=== PATIENT | male | born 1955 | race American Indian/Alaskan Native ===

== ENCOUNTER 2019-04-09 00:24 | Emergency (ER) | payer MEDICARE, OTHER ==
[~2019-04-09] VITALS: Ht 177.8 cm; Wt 117.9 kg
[~2019-04-09 00:24] MED LIST: ALBU90OI61 INH; AMOCLA875 PO; BISA5EC PO; BP MED; CEPH250A PO; CIPR500 PO; CLIN300 PO; DILT120 PO; DIURETIC; ENAL20 PO; ESOM20 PO; HTN MED X2; HYDACE5 PO; Hydrochloroth12.5 MG PO; METPRE4DP PO; MONT10T PO; OMEP40CA12 PO; OXYACE5T PO; OXYC5 PO; PANT40 PO; Prednisone50 MG PO; TIOT18 INH; Zantac150 MG PO; Zithromax250 MG PO
[2019-04-09] MEDS ORDERED: NYST100000 PO (01:40)
== END 2019-04-09 01:57 | disposition home or self-care (01) ==
LOC: ER 00:24
DX: B37.0 Candidal stomatitis (principal); I10 Essential (primary) hypertension; J44.9 Chronic obstructive pulmonary disease, unspecified; E11.9 Type 2 diabetes mellitus without complications; F17.210 Nicotine dependence, cigarettes, uncomplicated
CPT/HCPCS: 99283

== ENCOUNTER 2019-08-18 17:09 | Emergency (ER) | payer MEDICARE, OTHER ==
[~2019-08-18] VITALS: Ht 177.8 cm; Wt 109.3 kg
[~2019-08-18 17:09] MED LIST changes: +NYST100000 PO
[2019-08-18] MEDS ORDERED: NYST100000 PO ×2 (18:15→20:24)
[2019-08-18] MEDS ORDERED: Neurontin 300300 MG PO ×3 (20:12→20:24)
== END 2019-08-18 20:25 | disposition home or self-care (01) ==
LOC: ER 17:09
DX: M25.551 Pain in right hip (principal); B37.0 Candidal stomatitis; R06.00 Dyspnea, unspecified; Z88.2 Allergy status to sulfonamides; Z88.5 Allergy status to narcotic agent; Z79.899 Other long term (current) drug therapy; I10 Essential (primary) hypertension; J44.9 Chronic obstructive pulmonary disease, unspecified; E11.9 Type 2 diabetes mellitus without complications; F17.210 Nicotine dependence, cigarettes, uncomplicated
CPT/HCPCS: 94640; 99283-25

== ENCOUNTER 2020-04-22 15:13 | Inpatient (IN) | payer MEDICARE, OTHER ==
[~2020-04-22] VITALS: Ht 177.8 cm; Wt 121.1 kg
[~2020-04-22 15:13] MED LIST changes: -DILT120 PO; -ENAL20 PO; -Hydrochloroth12.5 MG PO; -MONT10T PO; +Neurontin 300300 MG PO; -PANT40 PO; -TIOT18 INH
[2020-04-22 15:42] LABS: BASOPHILS ABSOLUTE AUTO 0.06 K/mm3 (0.00-0.23); BASOPHILS PERCENT AUTO 1 % (0-2); EOSINOPHILS ABSOLUTE AUTO 0.16 K/mm3 (0.00-0.68); EOSINOPHILS PERCENT AUTO 1 % (0-6); Hematocrit 44.8 % (37.0-53.0); Hemoglobin 14.9 g/dL (13.5-17.5); IMMATURE GRAN ABSOLUTE AUTO 0.19 K/mm3 (0.00-0.10); IMMATURE GRAN PERCENT AUTO 2 % (0-1); LYMPHOCYTES ABSOLUTE AUTO 2.56 K/mm3 (0.84-5.20); LYMPHOCYTES PERCENT AUTO 23 % (21-46); MONOCYTES ABSOLUTE AUTO 1.12 K/mm3 (0.16-1.47); MONOCYTES PERCENT AUTO 10 % (4-13); Mean Corpuscular HGB Conc 33.3 g/dL (31.5-36.5); Mean Corpuscular Volume 93 fL (80-100); Mean Platelet Volume 10.4 fL (9.1-12.4); NEUTROPHILS ABSOLUTE AUTO 7.08 K/mm3 (1.96-9.15); NEUTROPHILS PERCENT AUTO 64 % (41-73); Platelet Count 248 K/mm3 (150-400); RDW Coefficient Variation 12.5 % (11.7-14.2); RDW Standard Deviation 43.3 fL (35.1-46.3); White Blood Cell Count 11.17 K/mm3 (4.00-11.30)
[2020-04-22 16:04] LABS: Alanine Aminotransfer (ALT/SGP 225 U/L (12-78); Albumin, Blood 3.6 g/dL (3.4-5.0); Albumin/Globulin Ratio 0.8 (0.8-1.8); Alk Phos 108 U/L (50-136); Anion Gap 9 mmol/L (6-16); Aspartate Aminotrans (AST/SGOT 358 U/L (12-37); Bilirubin, Total 0.5 mg/dL (0.1-1.0); Blood Urea Nitrogen 43 mg/dL (8-24); Bun/Creatinine Ratio 51.8 (12.0-20.0); CO2, Blood 26 mmol/L (21-32); Calcium, Blood 8.6 mg/dL (8.5-10.1); Chloride, Blood 99 mmol/L (98-108); Creatinine, Blood 0.83 mg/dL (0.60-1.20); Globulin, Blood 4.4 g/dL (2.2-4.0); Glomerular Filtration Rate >60 (60-); Glucose, Blood 114 mg/dL (70-99); Potassium, Blood 3.8 mmol/L (3.5-5.5); Sodium, Blood 134 mmol/L (136-145); Troponin I 0.035 ng/mL (0.000-0.040)
[2020-04-22 17:17] LABS: Base Excess Venous -0.1 mmol/L; Bicarbonate Venous 23.9 mmol/L (24.0-30.0); PCO2 Venous 47.1 mmHg (38-42); PO2 Venous 136 mmHg (38-42); pH Blood Venous 7.34 (7.34-7.37)
[2020-04-22] MEDS ORDERED: Ventolin/Prove6.7 GM INH (18:21)
[2020-04-22] MEDS ORDERED: Neurontin 300300 MG PO (18:22)
[2020-04-22] MEDS ORDERED: FUROSEMIDE20 MG PO (18:22)
[2020-04-22] MEDS ORDERED: Duoneb 2.5-0.5 M3 ML NEB (18:23)
[2020-04-22] MEDS ORDERED: LIDOCAINE15 GM TOP (18:24)
[2020-04-22] MEDS ORDERED: MONT10T PO (18:25)
[2020-04-22] MEDS ORDERED: OMEP20ER PO (18:25)
[2020-04-22] MEDS ORDERED: HYDCHL25 PO (18:25)
[2020-04-22] MEDS ORDERED: MOBIC15 MG PO (18:26)
[2020-04-22] MEDS ORDERED: ENAL20 PO (18:27)
[2020-04-22] MEDS ORDERED: DILTIAZEM ER240 MG PO (18:27)
[2020-04-22] MEDS ORDERED: Budesonide0.5 MG/2 M NEB (18:28)
[2020-04-22] MEDS ORDERED: TIOT18 INH (18:29)
[2020-04-22] MEDS ORDERED: METOPROLOL SUCC25 MG PO (18:30)
--- NOTE | 2020-04-23 01:22 | NUR ---
PT ARRIVED VIA STRETCHER FROM ER APPROXIMATELY 2150; SLIDER SHEET USED TO TRANSFER TO BED; RT AT BEDSIDE FOR BIPAP ADJUSTMENT; PT LETHARGIC AND WORE BIPAP FOR A COUPLE HOURS; CURRENTLY PT MORE ALERT AND AGITATED; DENIES NEED FOR BIPAP; PT EDUCATED ON BIPAP HELPING W/ BREATHING AND CO2 BUILD UP; PT ARGUING W/ STAFF; CUSTOMER SERVICE REP IN ROOM ASSISTING; O2 SATS >92 ON 4L NC; PT REFUSES SKID FREE SOCKS; PT EDUCATED ON SAFETY PROTOCOLS; PT DENIES NEEDS; HOWEVER PT STATES HIS R HIP IS BAD AND HIS LEGS GIVE OUT; DISCUSSED NEED TO HAVE SKID FREE SOCKS, BED ALARM, USING CALL LIGHT FOR ASSISTANCE FOR SAFETY; DENIES CHEST PAIN; CURRENTLY DENYING SOB; CALL LIGHT IN REACH; BED IN LOWEST POSITION; CUSTOMER SERVICE REP AND THIS RN TAKING TURNS TO BE W/ PT AND ENFORCE SAFETY MEASURES.
[2020-04-23 01:33] LABS: U Amphetamine Screen DETECTED; U Barbituate Screen Not Detected; U Benzodiazapine Screen Not Detected; U Buprenorphine Screen Not Detected; U Cannabinoids Screen Not Detected; U Cocaine Screen Not Detected; U Methadone Screen Not Detected; U Methamphetamine Screen DETECTED; U Opiates Screen Not Detected; U Oxycodone Screen Not Detected; U Phencyclidine Screen Not Detected; U Propoxyphene Screen Not Detected
--- NOTE | 2020-04-23 05:07 | NUR ---
SHIFT SUMMARY PT ALERT; ORIENTED TO SELF; SPEECH GARBLED AT TIMES; ARGUMENTATIVE; CURRENTLY REFUSING BIPAP; DISCUSSED W/ RT; PROVIDER NOTIFIED OF ABG NOT OBTAINED FROM PREVIOUS SHIFT; NEW ORDER FOR VBG W/ AM LABS ORDERED; O2 SATS >93 ON 4L NC; DIM LUNG SOUNDS; VSS; NSR NOTED ON TELE; LARGE, LOOSE STOOL 1X THIS SHIFT; SBA TO BSC W/ 2 RN'S; PT STATES HIS LEGS GIVE OUT FROM HIM W/OUT NOTICE; REFUSING SKID FREE SOCKS; EDUCATED ON SAFETY MEASURES; DENIES NEEDS; BED ALARM ON; CALL LIGHT IN REACH; BED IN LOWEST POSITION;
[2020-04-23 05:12] LABS: Hematocrit 46.2 % (37.0-53.0); Hemoglobin 15.3 g/dL (13.5-17.5); Mean Corpuscular HGB 31.4 pg (26.0-34.0); Mean Corpuscular HGB Conc 33.1 g/dL (31.5-36.5); Mean Corpuscular Volume 95 fL (80-100); Mean Platelet Volume 10.6 fL (9.1-12.4); Platelet Count 248 K/mm3 (150-400); RDW Coefficient Variation 12.4 % (11.7-14.2); Red Blood Cell Count 4.88 M/mm3 (4.30-5.90); White Blood Cell Count 7.76 K/mm3 (4.00-11.30)
[2020-04-23 05:28] LABS: Anion Gap 5 mmol/L (6-16); Blood Urea Nitrogen 28 mg/dL (8-24); Bun/Creatinine Ratio 39.3 (12.0-20.0); CO2, Blood 29 mmol/L (21-32); Calcium, Blood 8.7 mg/dL (8.5-10.1); Chloride, Blood 100 mmol/L (98-108); Creatinine, Blood 0.71 mg/dL (0.60-1.20); Glomerular Filtration Rate >60 (60-); Glucose, Blood 156 mg/dL (70-99); Magnesium, Blood 2.6 mg/dL (1.6-2.4); Phosphorus, Blood 3.2 mg/dL (2.5-4.9); Potassium, Blood 4.3 mmol/L (3.5-5.5); Sodium, Blood 134 mmol/L (136-145)
[2020-04-23 06:46] LABS: Base Excess Venous 3.7 mmol/L; PCO2 Venous 44.6 mmHg (38-42); PO2 Venous 67.5 mmHg (38-42); pH Blood Venous 7.41 (7.34-7.37)
--- NOTE | 2020-04-23 12:34 | NUR ---
PT IS MORE ALERT THIS MORNING ABLE TO STATE HIS NAME AND HIS , KNOWS WHERE HE'S AT, DISORIENTED TO YEAR AND DATE. PT IS MORE CONVERSIVE GETS A LITTLE ARGUMENTATIVE AT TIMES. PT ATE HIS BREAKFAST MEAL THIS MORNING WITHOUT ANY SWALLOWING ISSUES/DIFFICULTY. PT HAD COUGHING EPISODES WITH HIS LUNCH MEAL UPON CHECKING ON PT, PT DIDN'T HAVE HIS O2 ON AND IS FEELING SHORT OF BREATH WHILE EATING, PT WAS INSTRUCTED TO PUT HIS O2 BACK ON TO HELP HIM CATCH UP WITH HIS BREATHING, PT STATED "THIS IS WHAT I DO AT HOME I TAKE IT OFF WHEN IM EATING AND I PUT IT BACK ON WHEN I GET DONE!" PT WAS EDUCATED ABOUT HIS CURRENT ILLNESS/RESPIRATORY ISSUES, PT IS ARGUMENTATIVE AND UNINTERESTED. PROVIDER MADE AWARE, RECOMMENDED TO MONITOR PT AND TO MAKE SURE HE HAS HIS O2 ON WHILE HE'S EATING.
--- NOTE | 2020-04-23 18:15 | NUR ---
PT SUMMARY: (SEE PREVIOUS NOTES) PT DIDNT HAVE ANY COUGHING/SWALLOWING ISSUES WITH HIS DINNER. TOOK HIS ORAL MEDS WIHTOUT ANY ISSUES. PT HAS BEEN COOPERATIVE WITH CARES, VITALS STABLE BP SYSTOLIC ELEVATED UP TO 170'S PROVIDER IS AWARE, HRR NSR TO 80'S, AFEBRILE. SATA ABOVE 93% ON 3L OF NASAL CANNULA, SOB WITH EXERTION, USES BEDSIDE COMMODE FOR TOILETING 1PA. CIWA ASSESSMENT DONE STABLE AT 5-8, PT DENIES ANY NVM, HEADACHE. PT CURRENTLY RESTING IN BED, ABLE TO MAKE NEEDS KNOWN.
--- NOTE | 2020-04-23 22:08 | NUR ---
CARE ASSUMED REPORT RECEIVED, CARE ASSUMED AT 1900 FROM ALEXANDRO GRIMES. PT ALERT DANGLING ON SIDE OF BED, DRINKING WATER AND WATCHING TELEVISION. PT TALKATIVE. IRRITABLE BUT IMPROVES WITH CONVERSATION. PT MAKING JOKES INTERMITTENTLY. BP ELEVATED. SEE FLOWSHEET. DISCUSSED WITH DOUG MURILLO. SEE NEW ORDER FOR HYDRALAZINE. HR 70'S. AFEBRILE. RR 12-20 AT REST, INCREASES WITH EXERTION TO MID 20'S. PT REPORTS PAIN IN HIP, MEDICATED WITH TYLENOL. USING URINAL INDEPENDENTLY WHILE DANGLING AT SIDE OF BED, AGREEABLE TO CALL FOR STANDBY ASSIST IF HE NEEDS TO GET UP. CALL LIGHT IN REACH.
[2020-04-24 04:30] LABS: Alanine Aminotransfer (ALT/SGP 226 U/L (12-78); Albumin/Globulin Ratio 0.8 (0.8-1.8); Alk Phos 85 U/L (50-136); Anion Gap 6 mmol/L (6-16); Aspartate Aminotrans (AST/SGOT 179 U/L (12-37); Bilirubin, Total 0.3 mg/dL (0.1-1.0); Blood Urea Nitrogen 20 mg/dL (8-24); Bun/Creatinine Ratio 32.4 (12.0-20.0); CO2, Blood 29 mmol/L (21-32); Chloride, Blood 98 mmol/L (98-108); Creatinine, Blood 0.62 mg/dL (0.60-1.20); Glomerular Filtration Rate >60 (60-); Glucose, Blood 219 mg/dL (70-99); Magnesium, Blood 2.5 mg/dL (1.6-2.4); Potassium, Blood 3.7 mmol/L (3.5-5.5); Sodium, Blood 133 mmol/L (136-145)
--- NOTE | 2020-04-24 06:14 | NUR ---
SUMMARY PT SLEPT INTERMITTENTLY THROUGHOUT NIGHT, GETTING UP AND DOWN TO SIDE OF BED TO USE URINAL INDEPENDENTLY. USING CALL LIGHT FOR NEEDS THROUGHOUT NIGHT. VITALS STABLE. PT MEDICATED ONCE FOR CHRONIC PAIN IN BACK. PT TALKATIVE WITH STAFF INTERACTIONS, MAKING JOKES, AND COOPERATIVE WITH CARE. PT INCREASINGLY INVOLVED IN PLAN OF CARE, INCLUDING ASKING QUESTIONS ABOUT MEDICATIONS AND TREATMENT PLAN. PT DOES HAVE GARBLED SPEECH AND IS SOMEWHAT DIFFICULT TO UNDERSTAND BUT REPORTS THIS IS CHRONIC FROM LACK OF TEETH. BP IMPROVED THIS MORNING, NO PRN ANTIHYPERTENSIVES NEEDED. HR 70'S-80'S. RR 12-20'S. 02 SAT 90'S ON 3 LPM NASAL CANNULA. AFEBRILE. GOOD URINE OUTPUT. NO BM THIS SHIFT.
--- NOTE | 2020-04-24 07:41 | NUR ---
pt laying in bed, wakes easily, sat up on side of bed for assessment, a/ox3, but speech is very garbled, no teeth, cooperative with care, follows commands well, states bed is uncomfortable, lungs are course t/o, no cough noted but reports a productive cough, doesn't know what color it is, resp even and unlabored at rest, was reported he gets sob with exertion, on 4 liters 02 via n/c, hrr, trace to +1 edema noted to b/l le, ppp faint, cap refill <3sec, b/p elevated, will mediacate, iv sites x2 s.l, sites are clear and patent, btx4, abd round firm nontender, voids without diff, skin has discolored b/l john calderon perla, call light in reach.
--- NOTE | 2020-04-24 13:13 | NUR ---
pt will be going to medical floor, shortly, pt informed. will give report when available. call light in reach.
--- NOTE | 2020-04-24 14:17 | NUR ---
REPORT GIVEN TO RECIEVING NURSE, PT IS BEING TAKEN TO MEDICAL FLOOR VIA WHEELCHIAR WITH NETWORKS SOFTWARE CONSULTANT IN ATTENDENCE, AND HIS BELONGINGS.
--- NOTE | 2020-04-24 15:37 | NUR ---
TRANSFER OF CARE REPORT GIVEN TO [facility] AT BEDSIDE.
--- NOTE | 2020-04-24 15:45 | NUR ---
ASSUMED CARE OF PT FROM [facility]. PT SITTING IN CHAIR WATCHING TV.
--- NOTE | 2020-04-24 18:10 | NUR ---
SHIFT SUMMARY PT HAS HAD NO COMPLAINT OR CONCERNS SINCE ASSUMING CARE EARLIER. JUST FINISHED EATING HIS SUPPER AND REPORTED HE NEEDS MORE GRAVY ON HIS FOOD TO CHEW IT SINCE HE DOESN'T HAVE ANY TEETH. OFFERED DENTAL SOFT OR MECHANICAL SOFT DIET BUT HE DECLINED SAYING HE JUST WANTS EXTRA GRAVY AND SAUCES. NO RESP DISTRESS NOTED.
[2020-04-25 05:33] LABS: Alanine Aminotransfer (ALT/SGP 249 U/L (12-78); Albumin/Globulin Ratio 0.8 (0.8-1.8); Alk Phos 96 U/L (50-136); Anion Gap 7 mmol/L (6-16); Aspartate Aminotrans (AST/SGOT 138 U/L (12-37); Bilirubin, Total 0.3 mg/dL (0.1-1.0); Blood Urea Nitrogen 18 mg/dL (8-24); Bun/Creatinine Ratio 25.6 (12.0-20.0); CO2, Blood 31 mmol/L (21-32); Calcium, Blood 8.4 mg/dL (8.5-10.1); Chloride, Blood 97 mmol/L (98-108); Glomerular Filtration Rate >60 (60-); Glucose, Blood 257 mg/dL (70-99); Potassium, Blood 3.6 mmol/L (3.5-5.5); Sodium, Blood 135 mmol/L (136-145)
--- NOTE | 2020-04-25 06:17 | NUR ---
WORSHIP DIRECTOR SUMMARY Slept well. woke at 0400 with a harsh dry cough that he couldn't tolerate. Called night Hospitalist and rec'd order for guafenisen which resolved the cough and allowed the patient to go back to sleep. Lung sounds still coarse with wheezes heard throughout. 02 sats low to mid 90's on home level of 3 liters.
[2020-04-25] MEDS ORDERED: AZIT250 PO (11:59)
[2020-04-25] MEDS ORDERED: LIDO700A20 TOP (12:03)
[2020-04-25] MEDS ORDERED: BENZ100A PO (12:03)
[2020-04-25] MEDS ORDERED: GUAI600T33 PO (12:03)
[2020-04-25] MEDS ORDERED: NYST100000 PO (12:04)
[2020-04-25] MEDS ORDERED: Pedi-Dri 100,0060 GM TOP (12:05)
[2020-04-25] MEDS ORDERED: Prednisone10 MG PO (12:07)
[2020-04-25] MEDS ORDERED: B-1100 M1 PO (12:08)
[2020-04-25] MEDS ORDERED: Calcium With V1 EAC2 PO (12:10)
[2020-04-25] MEDS ORDERED: METF500 PO (12:12)
--- NOTE | 2020-04-25 13:41 | NUR ---
DISCHARGE SUMMARY [facility] LEFT WITH VIA CAR, ESCORTED DOWNSTAIRS. F/U APPT MADE WITH PCP, PT IS AWARE OF APPOINTMENT. ALL NEW MEDS REVIEWED WITH PT. MEDS FAXED TO PHARMACY. EMPHASIZED THE IMPORTANCE OF SKIN CARE ON GROIN AREA WITH NYSTATIN POWDER. EXPLAINED STEROID TAPER. PIV REMOVED.
== END 2020-04-25 12:57 | disposition home or self-care (01) | DRG 189 ==
LOC: ER 15:13 → PCU 21:22 → MEDS 04-24 14:49
PROVIDERS: Internal Medicine; Physician Assistant; ADMIT Internal Medicine
PROC: 5A09457 Assistance with Respiratory Ventilation, 24-96 Consecutive Hours, Continuous Positive Airway Pressure (ICD-10-PCS; principal; 2020-04-22)
DX: J96.01 Acute respiratory failure with hypoxia (principal); G92 Toxic encephalopathy; J44.1 Chronic obstructive pulmonary disease with (acute) exacerbation; Z68.41 Body mass index [BMI] 40.0-44.9, adult; Z20.828 Contact with and (suspected) exposure to other viral communicable diseases; F10.129 Alcohol abuse with intoxication, unspecified; E11.9 Type 2 diabetes mellitus without complications; I10 Essential (primary) hypertension; K21.9 Gastro-esophageal reflux disease without esophagitis; M16.11 Unilateral primary osteoarthritis, right hip; E66.01 Morbid (severe) obesity due to excess calories; B18.2 Chronic viral hepatitis C; M51.9 Unspecified thoracic, thoracolumbar and lumbosacral intervertebral disc disorder; I87.2 Venous insufficiency (chronic) (peripheral); R74.0 Nonspecific elevation of levels of transaminase and lactic acid dehydrogenase [LDH]; I25.10 Atherosclerotic heart disease of native coronary artery without angina pectoris
CPT/HCPCS: 36415; 71045; 71260; 80048; 80053; 82803; 82947; 83605; 83735; 83880; 84100; 84484; 85025; 85027; 93005; 93010; 94640; 94660; 94762; 96374; 96375; 99285-25; A9270; A9270-GY; G0480; J0456; J1650; J2930; J3411; J3475; J7042; J7050; J7512; Q9967; U0003

== ENCOUNTER 2020-08-20 09:40 | Day surgery (SDC) | payer MEDICARE, OTHER ==
[~2020-08-20 09:40] MED LIST changes: +AZIT250 PO; +B-1100 M1 PO; +BENZ100A PO; +Budesonide0.5 MG/2 M NEB; +Calcium With V1 EAC2 PO; +DILTIAZEM ER240 MG PO; +Duoneb 2.5-0.5 M3 ML NEB; +ENAL20 PO; +FURO20 PO; +FUROSEMIDE20 MG PO; +GUAI600T33 PO; +HYDCHL25 PO; +LIDO700A20 TOP; +LIDOCAINE15 GM TOP; +METF500 PO; +METOPROLOL SUCC25 MG PO; +MOBIC15 MG PO; +MONT10T PO; +NEURONTIN300 MG PO; +OMEP20ER PO; +PRED20 PO; +Pedi-Dri 100,0060 GM TOP; +Prednisone10 MG PO; +TIOT18 INH; +Ventolin/Prove6.7 GM INH
--- NOTE | 2020-08-20 11:19 | NUR ---
PT UNABLE TO TOLERATE LEFT LYING POSITION DUE TO CHRONIC HIP PAIN. PT SOB AT BASE LINE ON 5LNC EVEN AT HOME. Dressing to procedure site clean, dry, intact with no visible drainage, swelling, erythema or bruising noted. PT SAT SELF UP AND THEN GOT INTO WHEELCHAIR. HE STATES, "IT IS THE ONLY WAY THAT HELPS MY HIP PAIN."
--- NOTE | 2020-08-20 12:49 | NUR ---
Discharge instructions reviewed with patient. Patient verbalizes understanding. Copy given to patient to take home. Discharged via wheelchair to private car for ride home. ALL BELONINGS RETURNED.
== END 2020-08-20 22:54 | disposition home or self-care (01) ==
LOC: CT 09:40
DX: C22.7 Other specified carcinomas of liver (principal); J44.1 Chronic obstructive pulmonary disease with (acute) exacerbation; Q79.1 Other congenital malformations of diaphragm; Z88.2 Allergy status to sulfonamides; Z88.5 Allergy status to narcotic agent; Z88.8 Allergy status to other drugs, medicaments and biological substances; F10.188 Alcohol abuse with other alcohol-induced disorder; N40.1 Benign prostatic hyperplasia with lower urinary tract symptoms; G89.21 Chronic pain due to trauma; I87.393 Chronic venous hypertension (idiopathic) with other complications of bilateral lower extremity
CPT/HCPCS: 47000; 76000; 77012; 88307; 88342

== ENCOUNTER 2020-09-26 10:10 | Emergency (ER) | payer MEDICARE, OTHER ==
[~2020-09-26] VITALS: Ht 177.8 cm; Wt 129.3 kg
[2020-09-26] MEDS ORDERED: HYDMOR4 PO (12:48)
== END 2020-09-26 14:38 | disposition home or self-care (01) ==
LOC: ER 10:10
DX: M87.9 Osteonecrosis, unspecified (principal); J44.9 Chronic obstructive pulmonary disease, unspecified; I25.10 Atherosclerotic heart disease of native coronary artery without angina pectoris; I10 Essential (primary) hypertension; K21.9 Gastro-esophageal reflux disease without esophagitis; E11.9 Type 2 diabetes mellitus without complications; F17.210 Nicotine dependence, cigarettes, uncomplicated; Z79.899 Other long term (current) drug therapy; Z79.84 Long term (current) use of oral hypoglycemic drugs; Z79.52 Long term (current) use of systemic steroids
CPT/HCPCS: 73502; 94640; 96374; 96375; 99283-25; J1885; J3010

== ENCOUNTER 2020-10-15 09:53 | Emergency (ER) | payer MEDICARE, OTHER ==
[~2020-10-15] VITALS: Ht 177.8 cm; Wt 129.3 kg
[~2020-10-15 09:53] MED LIST changes: +HYDMOR4 PO
== END 2020-10-15 12:39 | disposition home or self-care (01) ==
LOC: ER 09:53
DX: M25.551 Pain in right hip (principal); Z79.899 Other long term (current) drug therapy; Z79.84 Long term (current) use of oral hypoglycemic drugs; Z79.52 Long term (current) use of systemic steroids
CPT/HCPCS: 96374; 96375; 99282-25; J1170; J1885

== ENCOUNTER 2020-11-07 16:56 | Emergency (ER) | payer MEDICARE, OTHER ==
[~2020-11-07] VITALS: Ht 162.6 cm; Wt 126.1 kg
[2020-11-07 20:27] LABS: BASOPHILS ABSOLUTE AUTO 0.08 K/mm3 (0.00-0.23); BASOPHILS PERCENT AUTO 1 % (0-2); EOSINOPHILS ABSOLUTE AUTO 0.25 K/mm3 (0.00-0.68); EOSINOPHILS PERCENT AUTO 2 % (0-6); Hematocrit 45.8 % (37.0-53.0); Hemoglobin 14.8 g/dL (13.5-17.5); IMMATURE GRAN ABSOLUTE AUTO 0.26 K/mm3 (0.00-0.10); IMMATURE GRAN PERCENT AUTO 2 % (0-1); LYMPHOCYTES ABSOLUTE AUTO 2.78 K/mm3 (0.84-5.20); LYMPHOCYTES PERCENT AUTO 26 % (21-46); MONOCYTES ABSOLUTE AUTO 0.72 K/mm3 (0.16-1.47); MONOCYTES PERCENT AUTO 7 % (4-13); Mean Corpuscular HGB 28.2 pg (26.0-34.0); Mean Corpuscular HGB Conc 32.3 g/dL (31.5-36.5); Mean Corpuscular Volume 87 fL (80-100); Mean Platelet Volume 10.3 fL (9.1-12.4); NEUTROPHILS PERCENT AUTO 62 % (41-73); Platelet Count 298 K/mm3 (150-400); RDW Coefficient Variation 13.5 % (11.7-14.2); RDW Standard Deviation 43.4 fL (35.1-46.3); Red Blood Cell Count 5.24 M/mm3 (4.30-5.90); White Blood Cell Count 10.79 K/mm3 (4.00-11.30)
[2020-11-07 20:40] LABS: Alanine Aminotransfer (ALT/SGP 49 U/L (12-78); Albumin, Blood 3.7 g/dL (3.4-5.0); Albumin/Globulin Ratio 0.8 (0.8-1.8); Alk Phos 122 U/L (50-136); Anion Gap 7 mmol/L (6-16); Aspartate Aminotrans (AST/SGOT 41 U/L (12-37); Bilirubin, Total 0.3 mg/dL (0.1-1.0); Blood Urea Nitrogen 13 mg/dL (8-24); Bun/Creatinine Ratio 15.3 (12.0-20.0); CO2, Blood 32 mmol/L (21-32); Calcium, Blood 9.4 mg/dL (8.5-10.1); Chloride, Blood 92 mmol/L (98-108); Creatinine, Blood 0.85 mg/dL (0.60-1.20); Globulin, Blood 4.8 g/dL (2.2-4.0); Glomerular Filtration Rate >60 (60-); Glucose, Blood 141 mg/dL (70-99); Potassium, Blood 4.3 mmol/L (3.5-5.5); Sodium, Blood 131 mmol/L (136-145); Total Protein, Blood 8.5 g/dL (6.4-8.2); Troponin I <0.015 ng/mL (0.000-0.040)
== END 2020-11-07 21:08 | disposition home or self-care (01) ==
LOC: ER 16:56
PROVIDERS: Emergency Medicine
DX: M16.11 Unilateral primary osteoarthritis, right hip (principal); I10 Essential (primary) hypertension; J44.9 Chronic obstructive pulmonary disease, unspecified; E11.9 Type 2 diabetes mellitus without complications; F17.210 Nicotine dependence, cigarettes, uncomplicated; Z88.2 Allergy status to sulfonamides; Z88.5 Allergy status to narcotic agent; Z79.52 Long term (current) use of systemic steroids; Z79.84 Long term (current) use of oral hypoglycemic drugs; Z79.899 Other long term (current) drug therapy
CPT/HCPCS: 36415; 73502; 80053; 83880; 84484; 85025; 99284-25; A9270; J1885

== ENCOUNTER 2020-12-01 17:19 | Emergency (ER) | payer MEDICARE, OTHER ==
[~2020-12-01] VITALS: Ht 177.8 cm; Wt 122.5 kg
== END 2020-12-01 19:05 | disposition home or self-care (01) ==
LOC: ER 17:19
DX: Z59.7 Insufficient social insurance and welfare support (principal); R53.1 Weakness; R06.02 Shortness of breath; I10 Essential (primary) hypertension; J44.9 Chronic obstructive pulmonary disease, unspecified; E11.9 Type 2 diabetes mellitus without complications; F17.210 Nicotine dependence, cigarettes, uncomplicated; Z79.899 Other long term (current) drug therapy; Z79.84 Long term (current) use of oral hypoglycemic drugs
CPT/HCPCS: 99285

== ENCOUNTER 2021-01-14 12:01 | Emergency (ER) | payer MEDICARE, OTHER ==
[~2021-01-14] VITALS: Ht 170.2 cm; Wt 72.6 kg
[~2021-01-14 12:01] MED LIST changes: +FURO40 PO; -FUROSEMIDE20 MG PO; +GLUCOPHAGE1000 M1 PO; -METF500 PO
[2021-01-14 13:13] LABS: BASOPHILS ABSOLUTE AUTO 0.04 K/mm3 (0.00-0.23); BASOPHILS PERCENT AUTO 1 % (0-2); EOSINOPHILS ABSOLUTE AUTO 0.04 K/mm3 (0.00-0.68); EOSINOPHILS PERCENT AUTO 1 % (0-6); Hematocrit 42.1 % (37.0-53.0); Hemoglobin 14.3 g/dL (13.5-17.5); IMMATURE GRAN PERCENT AUTO 1 % (0-1); LYMPHOCYTES ABSOLUTE AUTO 1.59 K/mm3 (0.84-5.20); LYMPHOCYTES PERCENT AUTO 20 % (21-46); MONOCYTES ABSOLUTE AUTO 0.56 K/mm3 (0.16-1.47); MONOCYTES PERCENT AUTO 7 % (4-13); Mean Corpuscular HGB 29.3 pg (26.0-34.0); Mean Corpuscular Volume 86 fL (80-100); Mean Platelet Volume 9.9 fL (9.1-12.4); NEUTROPHILS ABSOLUTE AUTO 5.73 K/mm3 (1.96-9.15); NEUTROPHILS PERCENT AUTO 71 % (41-73); Platelet Count 265 K/mm3 (150-400); RDW Coefficient Variation 13.5 % (11.7-14.2); Red Blood Cell Count 4.88 M/mm3 (4.30-5.90); White Blood Cell Count 8.06 K/mm3 (4.00-11.30)
[2021-01-14 13:15] LABS: Base Excess Venous 3.2 mmol/L; Bicarbonate Venous 26.7 mmol/L (24.0-30.0); PCO2 Venous 41.4 mmHg (38-42); PO2 Venous 54.2 mmHg (38-42); pH Blood Venous 7.43 (7.34-7.37)
[2021-01-14] MEDS ORDERED: Tessalon200 MG PO (13:22)
[2021-01-14] MEDS ORDERED: Paxil40 MG PO (13:22)
[2021-01-14] MEDS ORDERED: HYDMOR4 PO (13:26)
[2021-01-14] MEDS ORDERED: Ventolin/Prove6.7 GM INH (13:27)
[2021-01-14 13:49] LABS: Alanine Aminotransfer (ALT/SGP 67 U/L (12-78); Albumin, Blood 3.4 g/dL (3.4-5.0); Albumin/Globulin Ratio 0.8 (0.8-1.8); Alk Phos 104 U/L (50-136); Anion Gap 8 mmol/L (6-16); Aspartate Aminotrans (AST/SGOT 57 U/L (12-37); Bilirubin, Total 0.4 mg/dL (0.1-1.0); Blood Urea Nitrogen 11 mg/dL (8-24); Bun/Creatinine Ratio 22.4 (12.0-20.0); CO2, Blood 27 mmol/L (21-32); Calcium, Blood 8.8 mg/dL (8.5-10.1); Chloride, Blood 90 mmol/L (98-108); Creatinine, Blood 0.49 mg/dL (0.60-1.20); Glomerular Filtration Rate >60 (60-); Glucose, Blood 105 mg/dL (70-99); Sodium, Blood 125 mmol/L (136-145); Total Protein, Blood 7.4 g/dL (6.4-8.2); Troponin I <0.015 ng/mL (0.000-0.040)
== END 2021-01-14 20:00 | disposition home or self-care (01) ==
LOC: ER 12:01
PROVIDERS: Emergency Medicine
DX: M25.552 Pain in left hip (principal); M25.551 Pain in right hip; G89.29 Other chronic pain; E87.1 Hypo-osmolality and hyponatremia; I10 Essential (primary) hypertension; J44.9 Chronic obstructive pulmonary disease, unspecified; E11.9 Type 2 diabetes mellitus without complications; F17.200 Nicotine dependence, unspecified, uncomplicated; Z88.2 Allergy status to sulfonamides; Z88.5 Allergy status to narcotic agent; Z79.899 Other long term (current) drug therapy; Z79.84 Long term (current) use of oral hypoglycemic drugs
CPT/HCPCS: 36415; 71045; 80053; 82803; 82947; 83880; 84484; 85025; 93005; 93010; 94640; 96374; 99284-25; A9270; J1940

== ENCOUNTER 2021-02-04 10:30 | Emergency (ER) | payer MEDICARE, OTHER ==
[~2021-02-04] VITALS: Ht 175.3 cm; Wt 108.9 kg
[~2021-02-04 10:30] MED LIST changes: +Paxil40 MG PO; +Tessalon200 MG PO
[2021-02-04 10:54] LABS: BASOPHILS ABSOLUTE AUTO 0.05 K/mm3 (0.00-0.23); BASOPHILS PERCENT AUTO 1 % (0-2); EOSINOPHILS ABSOLUTE AUTO 0.28 K/mm3 (0.00-0.68); EOSINOPHILS PERCENT AUTO 3 % (0-6); Hematocrit 43.5 % (37.0-53.0); Hemoglobin 14.4 g/dL (13.5-17.5); IMMATURE GRAN ABSOLUTE AUTO 0.09 K/mm3 (0.00-0.10); IMMATURE GRAN PERCENT AUTO 1 % (0-1); LYMPHOCYTES ABSOLUTE AUTO 2.41 K/mm3 (0.84-5.20); LYMPHOCYTES PERCENT AUTO 29 % (21-46); MONOCYTES ABSOLUTE AUTO 0.63 K/mm3 (0.16-1.47); MONOCYTES PERCENT AUTO 8 % (4-13); Mean Corpuscular HGB 29.3 pg (26.0-34.0); Mean Corpuscular HGB Conc 33.1 g/dL (31.5-36.5); Mean Corpuscular Volume 89 fL (80-100); NEUTROPHILS ABSOLUTE AUTO 4.96 K/mm3 (1.96-9.15); NEUTROPHILS PERCENT AUTO 59 % (41-73); Platelet Count 268 K/mm3 (150-400); RDW Coefficient Variation 13.6 % (11.7-14.2); RDW Standard Deviation 43.8 fL (35.1-46.3); Red Blood Cell Count 4.91 M/mm3 (4.30-5.90); White Blood Cell Count 8.42 K/mm3 (4.00-11.30)
[2021-02-04 11:00] LABS: Base Excess Venous 6.6 mmol/L; Bicarbonate Venous 28.4 mmol/L (24.0-30.0); PCO2 Venous 57.3 mmHg (38-42); PO2 Venous 54.8 mmHg (38-42); pH Blood Venous 7.36 (7.34-7.37)
[2021-02-04 11:12] LABS: Alanine Aminotransfer (ALT/SGP 42 U/L (12-78); Albumin, Blood 3.3 g/dL (3.4-5.0); Albumin/Globulin Ratio 0.8 (0.8-1.8); Alk Phos 125 U/L (50-136); Anion Gap 6 mmol/L (6-16); Aspartate Aminotrans (AST/SGOT 33 U/L (12-37); Bilirubin, Total 0.4 mg/dL (0.1-1.0); Blood Urea Nitrogen 12 mg/dL (8-24); Bun/Creatinine Ratio 22.1 (12.0-20.0); CO2, Blood 32 mmol/L (21-32); Calcium, Blood 8.7 mg/dL (8.5-10.1); Chloride, Blood 91 mmol/L (98-108); Creatinine, Blood 0.54 mg/dL (0.60-1.20); Ethanol (Alcohol), Blood, Med <3 mg/dL; Globulin, Blood 4.3 g/dL (2.2-4.0); Glomerular Filtration Rate >60 (60-); Glucose, Blood 96 mg/dL (70-99); Potassium, Blood 4.3 mmol/L (3.5-5.5); Sodium, Blood 129 mmol/L (136-145); Total Protein, Blood 7.6 g/dL (6.4-8.2)
== END 2021-02-04 18:03 | disposition home or self-care (01) ==
LOC: ER 10:30
PROVIDERS: Emergency Medicine
DX: R40.4 Transient alteration of awareness (principal); J44.9 Chronic obstructive pulmonary disease, unspecified; I25.10 Atherosclerotic heart disease of native coronary artery without angina pectoris; I10 Essential (primary) hypertension; K21.9 Gastro-esophageal reflux disease without esophagitis; F17.210 Nicotine dependence, cigarettes, uncomplicated; Z88.2 Allergy status to sulfonamides; Z88.5 Allergy status to narcotic agent; Z79.84 Long term (current) use of oral hypoglycemic drugs; Z79.899 Other long term (current) drug therapy; Z72.89 Other problems related to lifestyle
CPT/HCPCS: 80053; 82803; 85025; 99285; G0480

== ENCOUNTER 2021-05-09 07:06 | Emergency (ER) | payer MEDICARE, OTHER ==
[~2021-05-09] VITALS: Ht 177.8 cm; Wt 117.9 kg
[2021-05-09 07:30] LABS: BASOPHILS ABSOLUTE AUTO 0.07 K/mm3 (0.00-0.23); BASOPHILS PERCENT AUTO 1 % (0-2); EOSINOPHILS ABSOLUTE AUTO 0.33 K/mm3 (0.00-0.68); EOSINOPHILS PERCENT AUTO 3 % (0-6); Hematocrit 39.3 % (37.0-53.0); Hemoglobin 13.1 g/dL (13.5-17.5); IMMATURE GRAN ABSOLUTE AUTO 0.23 K/mm3 (0.00-0.10); IMMATURE GRAN PERCENT AUTO 2 % (0-1); LYMPHOCYTES ABSOLUTE AUTO 2.51 K/mm3 (0.84-5.20); LYMPHOCYTES PERCENT AUTO 24 % (21-46); MONOCYTES ABSOLUTE AUTO 0.69 K/mm3 (0.16-1.47); MONOCYTES PERCENT AUTO 7 % (4-13); Mean Corpuscular HGB 29.7 pg (26.0-34.0); Mean Corpuscular HGB Conc 33.3 g/dL (31.5-36.5); Mean Corpuscular Volume 89 fL (80-100); Mean Platelet Volume 10.6 fL (9.1-12.4); NEUTROPHILS ABSOLUTE AUTO 6.53 K/mm3 (1.96-9.15); NEUTROPHILS PERCENT AUTO 63 % (41-73); Platelet Count 211 K/mm3 (150-400); RDW Coefficient Variation 12.5 % (11.7-14.2); RDW Standard Deviation 41.2 fL (35.1-46.3); Red Blood Cell Count 4.41 M/mm3 (4.30-5.90); White Blood Cell Count 10.36 K/mm3 (4.00-11.30)
[2021-05-09] MEDS ORDERED: ASPI81CH PO (07:35)
[2021-05-09 08:09] LABS: Alanine Aminotransfer (ALT/SGP 60 U/L (12-78); Albumin, Blood 3.3 g/dL (3.4-5.0); Albumin/Globulin Ratio 0.7 (0.8-1.8); Alk Phos 121 U/L (50-136); Anion Gap 6 mmol/L (6-16); Aspartate Aminotrans (AST/SGOT 49 U/L (12-37); Bilirubin, Total 0.3 mg/dL (0.1-1.0); Blood Urea Nitrogen 12 mg/dL (8-24); Bun/Creatinine Ratio 18.1 (12.0-20.0); CO2, Blood 30 mmol/L (21-32); Calcium, Blood 8.8 mg/dL (8.5-10.1); Chloride, Blood 94 mmol/L (98-108); Creatinine, Blood 0.66 mg/dL (0.60-1.20); Globulin, Blood 4.5 g/dL (2.2-4.0); Glomerular Filtration Rate >60 (60-); Glucose, Blood 157 mg/dL (70-99); Potassium, Blood 4.4 mmol/L (3.5-5.5); Sodium, Blood 130 mmol/L (136-145); Total Protein, Blood 7.8 g/dL (6.4-8.2); Troponin I <0.015 ng/mL (0.000-0.040)
== END 2021-05-09 11:21 | disposition home or self-care (01) ==
LOC: ER 07:06
PROVIDERS: Emergency Medicine
DX: J44.1 Chronic obstructive pulmonary disease with (acute) exacerbation (principal); I10 Essential (primary) hypertension; E11.9 Type 2 diabetes mellitus without complications; F17.210 Nicotine dependence, cigarettes, uncomplicated; Z79.82 Long term (current) use of aspirin; Z79.899 Other long term (current) drug therapy
CPT/HCPCS: 71045; 80053; 82947; 83880; 84484; 85025; 93005; 93010; 94640; 96374; 99285-25; J2930

== ENCOUNTER 2022-03-31 18:53 | Inpatient (IN) | payer MEDICARE, OTHER ==
[~2022-03-31] VITALS: Ht 180.3 cm; Wt 121.5 kg
[~2022-03-31 18:53] MED LIST changes: +ASPI81CH PO
[2022-03-31 19:29] LABS: BASOPHILS ABSOLUTE AUTO 0.04 K/mm3 (0.00-0.23); BASOPHILS PERCENT AUTO 1 % (0-2); EOSINOPHILS PERCENT AUTO 1 % (0-6); Hematocrit 40.3 % (37.0-53.0); Hemoglobin 12.4 g/dL (13.5-17.5); IMMATURE GRAN ABSOLUTE AUTO 0.12 K/mm3 (0.00-0.10); IMMATURE GRAN PERCENT AUTO 1 % (0-1); LYMPHOCYTES ABSOLUTE AUTO 1.68 K/mm3 (0.84-5.20); LYMPHOCYTES PERCENT AUTO 19 % (21-46); MONOCYTES ABSOLUTE AUTO 0.59 K/mm3 (0.16-1.47); MONOCYTES PERCENT AUTO 7 % (4-13); Mean Corpuscular HGB 26.5 pg (26.0-34.0); Mean Corpuscular HGB Conc 30.8 g/dL (31.5-36.5); Mean Corpuscular Volume 86 fL (80-100); Mean Platelet Volume 10.3 fL (9.1-12.4); NEUTROPHILS ABSOLUTE AUTO 6.25 K/mm3 (1.96-9.15); NEUTROPHILS PERCENT AUTO 71 % (41-73); Platelet Count 276 K/mm3 (150-400); RDW Coefficient Variation 15.3 % (11.7-14.2); RDW Standard Deviation 48.4 fL (35.1-46.3); Red Blood Cell Count 4.68 M/mm3 (4.30-5.90); White Blood Cell Count 8.78 K/mm3 (4.00-11.30)
[2022-03-31 19:52] LABS: Alanine Aminotransfer (ALT/SGP 56 U/L (12-78); Albumin, Blood 2.8 g/dL (3.4-5.0); Albumin/Globulin Ratio 0.6 (0.8-1.8); Alk Phos 136 U/L (50-136); Anion Gap 5 mmol/L (6-16); Aspartate Aminotrans (AST/SGOT 43 U/L (12-37); Bilirubin, Total 0.3 mg/dL (0.1-1.0); Blood Urea Nitrogen 13 mg/dL (8-24); Bun/Creatinine Ratio 19.2 (12.0-20.0); CO2, Blood 37 mmol/L (21-32); Calcium, Blood 8.8 mg/dL (8.5-10.1); Chloride, Blood 90 mmol/L (98-108); Creatinine, Blood 0.68 mg/dL (0.60-1.20); Globulin, Blood 4.8 g/dL (2.2-4.0); Glomerular Filtration Rate >60 (60-); Glucose, Blood 232 mg/dL (70-99); Sodium, Blood 132 mmol/L (136-145); Total Protein, Blood 7.6 g/dL (6.4-8.2)
[2022-03-31 21:25] LABS: Influenza A, PCR NEGATIVE (NEGATIVE); Influenza B, PCR NEGATIVE (NEGATIVE); Resp Syncytial Virus, PCR NEGATIVE (NEGATIVE); SARS-Cov-2 (COVID-19) PCR, MMC NEGATIVE (NEGATIVE)
--- NOTE | 2022-03-31 23:33 | NUR ---
ADMIT NOTE HANDOFF RECEIVED FROM BALLISTIC EXPERT CHRISSIE. PT ARRIVED TO FLOOR VIA GURNEY. PERSONAL POSSESSIONS WITH PT. CALL BUTTON WITHIN REACH. IV ANTIB RX INFUSING ORDERED.
--- NOTE | 2022-04-01 01:06 | NUR ---
CALLED HOSPITALIST PT REQUESTING PAIN MEDICATION, STATES PAIN IS 10/10. CALLED HOSPITALIST. SEE EMAR.
--- NOTE | 2022-04-01 04:54 | NUR ---
SHIFT SUMMARY ADMITTED FOR BLE CELLULITIS THIS SHIFT. FULL CODE. IV ANTIB RX ARE SCHEDULED. TELEMETRY: TACHY @ 105 BPM. DRESSINGS CHANGED THIS SHIFT. PICS IN CHART. 6 LPM O2 @ BASELINE. WHEELCHAIR BOUND @ BASELINE. GARBLED SPEECH. HX: COPD. DM2. CALLS FREQUENTLY.
[2022-04-01 05:03] LABS: BASOPHILS ABSOLUTE AUTO 0.03 K/mm3 (0.00-0.23); BASOPHILS PERCENT AUTO 0 % (0-2); EOSINOPHILS ABSOLUTE AUTO 0.08 K/mm3 (0.00-0.68); EOSINOPHILS PERCENT AUTO 1 % (0-6); Hematocrit 38.9 % (37.0-53.0); IMMATURE GRAN ABSOLUTE AUTO 0.07 K/mm3 (0.00-0.10); IMMATURE GRAN PERCENT AUTO 1 % (0-1); LYMPHOCYTES ABSOLUTE AUTO 1.66 K/mm3 (0.84-5.20); LYMPHOCYTES PERCENT AUTO 21 % (21-46); MONOCYTES ABSOLUTE AUTO 0.66 K/mm3 (0.16-1.47); MONOCYTES PERCENT AUTO 8 % (4-13); Mean Corpuscular HGB 26.5 pg (26.0-34.0); Mean Corpuscular HGB Conc 30.8 g/dL (31.5-36.5); Mean Corpuscular Volume 86 fL (80-100); Mean Platelet Volume 10.2 fL (9.1-12.4); NEUTROPHILS ABSOLUTE AUTO 5.42 K/mm3 (1.96-9.15); NEUTROPHILS PERCENT AUTO 68 % (41-73); Platelet Count 257 K/mm3 (150-400); RDW Coefficient Variation 15.4 % (11.7-14.2); RDW Standard Deviation 48.2 fL (35.1-46.3); Red Blood Cell Count 4.53 M/mm3 (4.30-5.90); White Blood Cell Count 7.92 K/mm3 (4.00-11.30)
[2022-04-01 05:29] LABS: Alanine Aminotransfer (ALT/SGP 51 U/L (12-78); Albumin, Blood 2.7 g/dL (3.4-5.0); Albumin/Globulin Ratio 0.6 (0.8-1.8); Alk Phos 111 U/L (50-136); Anion Gap 5 mmol/L (6-16); Aspartate Aminotrans (AST/SGOT 34 U/L (12-37); Bilirubin, Total 0.6 mg/dL (0.1-1.0); Blood Urea Nitrogen 11 mg/dL (8-24); Bun/Creatinine Ratio 20.3 (12.0-20.0); CO2, Blood 35 mmol/L (21-32); Calcium, Blood 8.7 mg/dL (8.5-10.1); Chloride, Blood 91 mmol/L (98-108); Creatinine, Blood 0.54 mg/dL (0.60-1.20); Globulin, Blood 4.6 g/dL (2.2-4.0); Glomerular Filtration Rate >60 (60-); Glucose, Blood 183 mg/dL (70-99); Potassium, Blood 3.9 mmol/L (3.5-5.5); Sodium, Blood 131 mmol/L (136-145); Total Protein, Blood 7.3 g/dL (6.4-8.2)
[2022-04-01] MEDS ORDERED: LORA.5 PO (09:36)
[2022-04-01] MEDS ORDERED: ONDA4 PO (09:37)
[2022-04-01 13:06] LABS: Source, Urine Clean Catch
[2022-04-01 13:16] LABS: Appearance, Urine Clear (Clear); Bilirubin, Urine Neg (Neg); Blood, Urine 1+ (Neg); Color, Urine Amber (P-Yellow); Glucose Qualitative, Urine 3+ (Neg); Ketones, Urine Neg (Neg); Leukocyte Esterase, Urine Neg (Neg); Nitrite, Urine Neg (Neg); Protein, Urine 3+ (Neg); Urobilinogen, Urine 1+ (Normal)
[2022-04-01 13:44] LABS: Red Blood Cells, Urine 0-2 /hpf (0-2); White Blood Cells, Urine 0-2 /hpf (0-5)
[2022-04-01 13:46] LABS: Bacteria Rare /hpf; Squamous Epithelial Cells Rare /hpf (Few)
--- NOTE | 2022-04-01 17:49 | NUR ---
SHIFT SUMMARY PATIENT IS ALERT AND ORIENTED X2-3. PATIENT IS FULL CODE HERE. PATIENT HAS EXTENSIVE HISTORY WITH THE [facility] [employer] A[facility]. RECEIVED RECORDS AND HAVE PAPER COPY IN CHART. DR WILL REVIEW IN THE AM. PATIENT HAS HAD NO ACUTE EVENTS THIS SHIFT. VITAL SIGNS REVIEWED. PATIENT IS ON 6L O2 NC WHICH IS BASELINE. PATIENT HAS GARBLED SPEECH. PATIENT IS WHEELCHAIR BOUND AT BASELINE. WILL MONITOR UNTIL SHIFT CHANGE.
--- NOTE | 2022-04-02 04:24 | NUR ---
SHIFT SUMMARY ADMITTED FOR VENOUS ULCERS. FULL CODE. TELEMETRY: TACHY @ 105 BPM. WHEELCHAIR AT BASELINE, WEAKNESS REPORTED. HEAVY 2 MAX ASSIST TO CHAIR. HE IS DECONDITIONED. SOLUMEDROL IS SCHEDULED, HX OF COPD. ADA DIET, HE IS NONCOMPLIANT. PO PAIN MEDICATION FOR LEG PAIN.
--- NOTE | 2022-04-02 15:36 | NUR ---
DISCHARGE SUMMARY PATIENT IS ALERT AND ORIENTED 2-3X. PATIENT HAS HAD NO ACUTE EVENTS THIS SHIFT. VITAL SIGNS REVIEWED. PATIENT WAS DISCHARGED TO HOME VIA [facility]. PATIENT WAS READ AND AGREED TO UNDERSTANDING OF DISCHARGE INSTRUCTIONS.
== END 2022-04-02 14:17 | disposition hospice, home (50) | DRG 872 ==
LOC: ER 18:53 → MEDS 21:44 → ENPENDDIS 04-02 10:47 → MEDS 04-02 14:17
PROVIDERS: Emergency Medicine; Internal Medicine; ADMIT Internal Medicine
DX: A41.9 Sepsis, unspecified organism (principal); J96.11 Chronic respiratory failure with hypoxia; C22.8 Malignant neoplasm of liver, primary, unspecified as to type; E66.2 Morbid (severe) obesity with alveolar hypoventilation; Z51.5 Encounter for palliative care; Z74.01 Bed confinement status; Z99.3 Dependence on wheelchair; Z20.822 Contact with and (suspected) exposure to COVID-19; I25.10 Atherosclerotic heart disease of native coronary artery without angina pectoris; I10 Essential (primary) hypertension; E11.9 Type 2 diabetes mellitus without complications; K21.9 Gastro-esophageal reflux disease without esophagitis; B19.20 Unspecified viral hepatitis C without hepatic coma; F17.210 Nicotine dependence, cigarettes, uncomplicated; R62.7 Adult failure to thrive; I87.2 Venous insufficiency (chronic) (peripheral); R32 Unspecified urinary incontinence; M19.90 Unspecified osteoarthritis, unspecified site; L30.9 Dermatitis, unspecified; R16.0 Hepatomegaly, not elsewhere classified; Z99.81 Dependence on supplemental oxygen; Z68.38 Body mass index [BMI] 38.0-38.9, adult; Z98.890 Other specified postprocedural states; Z88.2 Allergy status to sulfonamides; Z88.6 Allergy status to analgesic agent; Z79.82 Long term (current) use of aspirin; Z79.84 Long term (current) use of oral hypoglycemic drugs; Z79.899 Other long term (current) drug therapy
CPT/HCPCS: 0241U; 36415; 71045; 80053; 81001; 82140; 83605; 83880; 84145; 84484; 85025; 87040; 93005; 93010; 94640; 94664; 94760; 96374; 96375; 97110; 97162; 97166; 97530; 99285-25; A9270; J0696; J1170; J1650; J2543; J2930; J3010; J3370; J7040; J7050; J7060

== ENCOUNTER 2022-05-04 13:34 | Emergency (ER) | payer MEDICARE, OTHER ==
[~2022-05-04] VITALS: Ht 170.2 cm; Wt 104.3 kg
[~2022-05-04 13:34] MED LIST changes: +LORA.5 PO; +ONDA4 PO
== END 2022-05-04 16:56 | disposition home or self-care (01) ==
LOC: ER 13:34
DX: G89.4 Chronic pain syndrome (principal); K21.9 Gastro-esophageal reflux disease without esophagitis; J44.9 Chronic obstructive pulmonary disease, unspecified; I25.10 Atherosclerotic heart disease of native coronary artery without angina pectoris; I10 Essential (primary) hypertension; E11.9 Type 2 diabetes mellitus without complications; F17.210 Nicotine dependence, cigarettes, uncomplicated; Z79.84 Long term (current) use of oral hypoglycemic drugs; Z79.82 Long term (current) use of aspirin; Z88.2 Allergy status to sulfonamides; Z88.5 Allergy status to narcotic agent; Z79.899 Other long term (current) drug therapy
CPT/HCPCS: 99283

== ENCOUNTER 2022-06-09 02:36 | Emergency (ER) | payer MEDICARE, OTHER ==
[~2022-06-09] VITALS: Ht 177.8 cm; Wt 70.3 kg
[2022-06-09 03:20] LABS: BASOPHILS ABSOLUTE AUTO 0.05 K/mm3 (0.00-0.23); BASOPHILS PERCENT AUTO 1 % (0-2); EOSINOPHILS ABSOLUTE AUTO 0.18 K/mm3 (0.00-0.68); EOSINOPHILS PERCENT AUTO 2 % (0-6); Hematocrit 38.6 % (37.0-53.0); Hemoglobin 11.8 g/dL (13.5-17.5); IMMATURE GRAN ABSOLUTE AUTO 0.14 K/mm3 (0.00-0.10); IMMATURE GRAN PERCENT AUTO 2 % (0-1); LYMPHOCYTES ABSOLUTE AUTO 1.81 K/mm3 (0.84-5.20); LYMPHOCYTES PERCENT AUTO 25 % (21-46); MONOCYTES PERCENT AUTO 10 % (4-13); Mean Corpuscular HGB 29.1 pg (26.0-34.0); Mean Corpuscular HGB Conc 30.6 g/dL (31.5-36.5); Mean Corpuscular Volume 95 fL (80-100); NEUTROPHILS ABSOLUTE AUTO 4.51 K/mm3 (1.96-9.15); NEUTROPHILS PERCENT AUTO 61 % (41-73); Platelet Count 265 K/mm3 (150-400); RDW Coefficient Variation 14.6 % (11.7-14.2); RDW Standard Deviation 51.1 fL (35.1-46.3); Red Blood Cell Count 4.05 M/mm3 (4.30-5.90); White Blood Cell Count 7.39 K/mm3 (4.00-11.30)
[2022-06-09 03:51] LABS: Influenza A, PCR NEGATIVE (NEGATIVE); Influenza B, PCR NEGATIVE (NEGATIVE); Resp Syncytial Virus, PCR NEGATIVE (NEGATIVE); SARS-Cov-2 (COVID-19) PCR, MMC NEGATIVE (NEGATIVE)
[2022-06-09 03:51] LABS: Albumin, Blood 2.8 g/dL (3.4-5.0); Albumin/Globulin Ratio 0.6 (0.8-1.8); Bilirubin, Total 0.7 mg/dL (0.1-1.0); Bun/Creatinine Ratio 25.9 (12.0-20.0); Calcium, Blood 8.5 mg/dL (8.5-10.1); Creatinine, Blood 0.58 mg/dL (0.60-1.20); Globulin, Blood 4.5 g/dL (2.2-4.0); Potassium, Blood 3.8 mmol/L (3.5-5.5); Total Protein, Blood 7.3 g/dL (6.4-8.2)
[2022-06-09] MEDS ORDERED: Prednisone20 MG PO (05:33)
--- NOTE | 2022-06-09 10:10 | NUR ---
ED Palliative Care Consult Spoke with ED Improvement Lead Eulalia and discussed case. Pt currently lives alone and PCP reports Pt is currently on hospice services with [facility]. Concerns that Pt is no longer able to care for himself. Eulalia reports plan to contact [facility] to determine resources available for Pt. Pt is resting on gurney and is A&OX2/3. Pt unable to verbalize current year. Pt denies pain at this time. Pt does appear moderately dyspnic and anxious. Pt agreeable to safe disposition with continued hospice support. Spoke with Pt's feed mill tender Nikhil and discussed case. Nikhil reports Pt is adamant about living at home so he can drink and smoke. Nikhil reports best disposition may be home with hospital bed and caregivers. He reports Pt often will be ammendable to higher level of care but then quickly changes his minds. Will discuss case rebeca with Improvement Lead and ED Provider.
[2022-06-09 11:01] LABS: Source, Urine Clean Catch
[2022-06-09 11:19] LABS: Appearance, Urine Hazy (Clear); Bilirubin, Urine Neg (Neg); Blood, Urine 5+ (Neg); Color, Urine Yellow (P-Yellow); Glucose Qualitative, Urine Neg (Neg); Ketones, Urine Neg (Neg); Leukocyte Esterase, Urine 3+ (Neg); Nitrite, Urine Pos (Neg); Protein, Urine 3+ (Neg); Urobilinogen, Urine 2+ (Normal); pH, Urine 6.5 (5.0-8.0)
[2022-06-09 11:43] LABS: Red Blood Cells, Urine 25-50 /hpf (0-2)
[2022-06-09 11:44] LABS: Amorphous Light (0-Heavy); Bacteria Mod /hpf; Squamous Epithelial Cells Few /hpf (Few)
[2022-06-10] MEDS ORDERED: Prednisone20 MG PO (13:21)
== END 2022-06-10 19:41 | disposition home or self-care (01) ==
LOC: ER 02:36
PROVIDERS: Emergency Medicine; Student in an Organized Health Care Education/Training Program
DX: J44.9 Chronic obstructive pulmonary disease, unspecified (principal); I25.10 Atherosclerotic heart disease of native coronary artery without angina pectoris; I10 Essential (primary) hypertension; K21.9 Gastro-esophageal reflux disease without esophagitis; E11.9 Type 2 diabetes mellitus without complications; F17.210 Nicotine dependence, cigarettes, uncomplicated; Z79.899 Other long term (current) drug therapy; Z79.84 Long term (current) use of oral hypoglycemic drugs; Z79.82 Long term (current) use of aspirin; Z88.5 Allergy status to narcotic agent; Z88.2 Allergy status to sulfonamides; Z20.822 Contact with and (suspected) exposure to COVID-19
CPT/HCPCS: 0241U; 36415; 71045; 80053; 81001; 83880; 84484; 85025; 87086; 93005; 93010; 94640; 94644; 94664; 99285-25; A9270